=== PATIENT | female | born 2000 | race Hispanic/Latino ===

== ENCOUNTER 2024-08-18 09:40 | Emergency (ER) | payer SELFPAY ==
[2024-08-18 10:46] LABS: #Basophils 0.04 10x3/uL (0.0-0.2); #Monocytes 0.51 10x3/uL (0.0-1.1); #Neutrophils 5.24 10x3/uL (1.5-8.4); %Basophils 0.5 % (0.0-2.0); %Eosinophils 1.2 % (0.0-6.0); %Monocytes 6.3 % (0.0-10.0); %Neutrophils 64.5 % (40.0-75.0); Hematocrit 38.1 % (34.9-44.5); Hemoglobin 12.7 g/dL (12.0-15.5); Mean Corpuscular HGB CONC 33.3 g/dL (32.0-36.0); Mean Corpuscular Hemoglobin 29.3 pg (27.0-33.0); Mean Corpuscular Volume 87.8 fL (81.6-98.3); Mean Platelet Volume 9.5 fL (7.4-10.4); Platelet Count 333 10x3/uL (150-450); RBC Distribution Width 12.2 % (11.5-14.5); Red Blood Cell (RBC) Count 4.34 10x6/uL (3.90-5.03); White Blood Cell (WBC) Count 8.1 10x3/uL (3.5-10.5)
[2024-08-18 11:04] LABS: ALT (SGPT) 10 U/L (8-55); AST (SGOT) 15 U/L (5-34); Albumin 3.9 g/dL (3.5-5.0); Alkaline Phosphatase 49 U/L (40-110); Anion Gap 13 mmol/L (10-20); BUN (Urea Nitrogen) 8 mg/dL (7.0-18.7); Bilirubin, Total 0.4 mg/dL (0.2-1.2); Calc. Creatinine Clearance 0 mL/min (70-130); Calcium 9.8 mg/dL (7.8-10.44); Carbon Dioxide 22 mmol/L (22-29); Chloride 105 mmol/L (98-107); Estimated GFR 127; Globulin 3.3 g/dL (2.4-3.5); Glucose 71 mg/dL (70-105); Potassium 3.9 mmol/L (3.5-5.1); Protein, Total 7.2 g/dL (6.0-8.3); Sodium 136 mmol/L (136-145)
[2024-08-18 12:09] LABS: Bilirubin Neg (Negative); Blood, Urine 10 (Negative); Glucose, Urine (Dipstick) Normal (Negative); Ketone, Urine Negative (Negative); Leukocyte Negative (Negative); Nitrite Negative (Negative); Protein, Urine (Dipstick) Negative (Neg-Trace); Specific Gravity, Urine 1.005 (1.005-1.030); Urobilinogen Normal mg/dL (Less than 2)
[2024-08-18 12:10] LABS: Clarity Clear (Clear)
[2024-08-18 12:35] LABS: CAUTI Indications for Culture Pelvic or flank pain; RBC/HPF None Seen HPF (0-3); WBC/HPF None Seen HPF (0-3)
[2024-08-18 12:36] LABS: Bacteria/HPF Rare-Few HPF (None Seen); Urine Culture Reflex No No
== END 2024-08-18 12:32 | disposition home or self-care (01) ==
LOC: CSHERS 09:40
DX: O26.851 Spotting complicating pregnancy, first trimester (principal); O99.331 Smoking (tobacco) complicating pregnancy, first trimester; Z55.6 Problems related to health literacy; Z3A.10 10 weeks gestation of pregnancy
CPT/HCPCS: 76856; 80053; 81001; 84702; 85025; 86900; 86901